=== PATIENT | male | born 2000 | race Caucasian/White ===

== ENCOUNTER 2022-11-09 05:52 | Day surgery (SDC) | payer BC ==
[2022-11-09] MEDS ORDERED: Lactated Ringers 1,000 ML IV SCH (06:30)
[2022-11-09] MEDS ORDERED: DIPRIVAN 200 MG/20 ML IV ONE ×2 (07:48→08:22)
[2022-11-09] MEDS ORDERED: Xylocaine-Mpf 2% 5 Ml Vial ONE (07:48)
[2022-11-09 08:54] VITALS: O2SAT 100
[2022-11-09 09:09] VITALS: BP 139/72; PULSE 84
--- NOTE | 2022-11-09 09:56 | OP ---
SURGERY DATE/TIME: 11/09/2022 0752 PREOPERATIVE DIAGNOSIS: Abdominal pain, mucous in stool and weight loss. POSTOPERATIVE DIAGNOSES: 1) Mild gastritis. 2) Small colon polyp. PROCEDURES: 1) Esophagogastroduodenoscopy with cold forceps biopsy. 2) Colonoscopy with cold forceps biopsy. SURGEON: Dr. Pradhan. ANESTHESIA: Medications were given by the anesthesia department. HISTORY: The patient is a 22-year-old white male who reports that he has been having trouble with abdominal pain occasionally waking him up from sleep at which time he has explosive diarrhea or vomiting. He reports it has been going on for a number of months. He reports that he has weight loss issues and weight gain issues but he has lost from a weight of over 200 pounds down to about 140. The patient was felt the need to have endoscopic evaluation. He was described the risks of the procedure including the risk of perforation, phlebitis, untoward reaction to medication, bleeding and missed lesions. The patient verbalized his understanding and desired to have the procedure performed. DESCRIPTION OF PROCEDURE: The patient was given the medications by the anesthesia department. He had continuous pulse oximetry, ECG monitoring and intermittent blood pressure monitoring during the examination. He was placed in the left lateral decubitus position. A bite block was placed. The flexible Olympus gastroscope was used to intubate the oropharynx. A view of the larynx was obtained and was normal. The scope was easily introduced in the esophagus which appeared to be normal throughout its length. The stomach was entered where normal gastric rugal folds were seen and these distended nicely with insufflation of air. The scope was passed along the greater curvature of the stomach to the antrum which appeared to be mildly erythematous. The scope is passed through pylorus. The duodenum inspected. Biopsies were obtained to rule out the presence of celiac sprue. The scope is then withdrawn towards the stomach again and biopsies were obtained to rule out the presence of Helicobacter pylori-type organisms. Retroflex view is obtained of lesser curvature, fundus and cardia region of the stomach and these were normal as well. The scope was then withdrawn from the patient. Next, a digital rectal examination was performed and revealed normal anal sphincter tone, no masses and normal prostate. The flexible Olympus pediatric colonoscope was used to intubate the rectum. A view of the colon was developed sequentially to the cecum including a short distance in the terminal ileum. Biopsies were obtained in the terminal ileum and throughout the colon to rule out inflammatory bowel disease. There was one small polyp in the sigmoid colon and this was biopsied also using cold forceps biopsy tool. The scope was then removed from the patient who tolerated the procedure well and was sent to OP recovery in good condition. The prep was noted to be fair.
== END 2022-11-09 09:12 | disposition home or self-care (01) ==
LOC: SDC 05:52
PROVIDERS: ATTEND Family Medicine
DX: K29.70 Gastritis, unspecified, without bleeding (principal); R10.9 Unspecified abdominal pain; R19.5 Other fecal abnormalities; R63.4 Abnormal weight loss; D12.5 Benign neoplasm of sigmoid colon
CPT/HCPCS: J2704